=== PATIENT | male | born 1960 | race Caucasian/White ===

== ENCOUNTER 2020-10-26 05:23 | Day surgery (SDC) | payer BC ==
[2020-10-20 16:25] LABS: BASOPHILS # (AUTO) 0.1 X10'3 (0-0.2); BASOPHILS % (AUTO) 0.8 % (0-1); EOSINOPHILS # (AUTO) 0.3 X10'3 (0-0.9); EOSINOPHILS % (AUTO) 3.7 % (0-6); LYMPHOCYTES # (AUTO) 1.7 X10'3 (1.1-4.8); LYMPHOCYTES % (AUTO) 20.9 % (21-51); MEAN CORPUSCULAR HGB CONC 34.4 g/dL (33.0-36.5); MEAN CORPUSCULAR VOLUME 90.1 FL (78-98); MEAN PLATELET VOLUME 7.6 FL (7.4-10.4); MONOCYTES # (AUTO) 0.5 X10'3 (0-0.9); MONOCYTES % (AUTO) 6.4 % (2-12); NEUTROPHILS # (AUTO) 5.7 X10'3 (1.8-7.7); NEUTROPHILS % (AUTO) 68.2 % (42-75); PRE OP HEMATOCRIT 43.2 % (42.0-52.0); PRE OP HEMOGLOBIN 14.9 g/dL (14.0-17.9); PRE OP PLATELET COUNT 260 X10'3 (140-440); RED BLOOD COUNT 4.79 X10'6 (4.70-6.10); RED CELL DISTRIBUTION WIDTH 13.7 % (11.5-14.5)
[2020-10-20 16:44] LABS: ALBUMIN 4.1 G/DL (3.4-5.0); ALBUMIN/GLOBULIN RATIO 1.2 (1.1-1.5); ALKALINE PHOSPHATASE 83 IU/L (46-116); BLOOD UREA NITROGEN 22 MG/DL (7-18); BUN/CREATININE RATIO 17.7 (5.4-32.0); CALCIUM 8.9 MG/DL (8.5-10.1); CHLORIDE 104 MMOL/L (99-107); CREATININE 1.24 MG/DL (0.60-1.10); PRE OP ALT 43 U/L (30-65); PRE OP ANION GAP 11 (8-16); PRE OP BILIRUB, TOTAL 0.4 MG/DL (0.0-1.0); PRE OP GLUCOSE 97 MG/DL (70-104); PRE OP SODIUM 140 MMOL/L (135-145); TOTAL CARBON DIOXIDE 25.2 MMOL/L (24-32); TOTAL PROTEIN 7.6 G/DL (6.4-8.2); eGFR 59 ML/MIN
[2020-10-20 16:46] LABS: PRE OP AST 27 U/L (10-37); PRE OP POTASSIUM 4.1 MMOL/L (3.4-5.1)
[~2020-10-26] VITALS: Ht 172.7 cm; Wt 123.0 kg
[2020-10-26] VITALS (18 sets, daily range): BP systolic 119–143; BP diastolic 68–87
[~2020-10-26 05:23] MED LIST: ALBU8.5H8 INH; IBUP-1986 PO; PANT40TA54 PO; VITAMIN C; VITAMIN D3; [UNRECOGNIZED DRUG - OTHER]; ringers solution, lacted 1,000 ML IV SCH
[2020-10-26] MEDS ORDERED: famotidine 20mg tablet PO ONE (05:30)
[2020-10-26] MEDS ORDERED: ceFAZolin 2gm in dextrose, iso 50 ML IV ONE (05:30)
[2020-10-26] MEDS ORDERED: BUPIVAcaine/PF 2.5mg/ml (0.25%) 10ml vial ONE (06:47)
[2020-10-26] MEDS ORDERED: LIDOcaine 1% 30ml preserv. free vial ONE (06:47)
[2020-10-26] MEDS ORDERED: BUPIVAcaine/PF 2.5 mg/ml (0.25%) 30ml vial ONE (06:47)
[2020-10-26] MEDS ORDERED: BUPIVACAINE liposomal/PF 13.3 MG/ML vial IM ONE (06:48)
[2020-10-26] MEDS ORDERED: fentaNYL/PF 50MCG/1 ML 2ML syringe ONE ×2 (07:17→08:18)
[2020-10-26] MEDS ORDERED: midazolam 1 mg/ML 2ml injection ONE (07:18)
[2020-10-26] MEDS ORDERED: rocuronium 10mg/ml inj IV ONE (07:20)
[2020-10-26] MEDS ORDERED: propofol inj 20 ML IV ONE (07:20)
[2020-10-26] MEDS ORDERED: LIDOcaine 2% (20mg/ml) 5ml vial ONE (07:20)
[2020-10-26] MEDS ORDERED: ringers solution, lacted 1,000 ML IV SCH (07:50)
[2020-10-26] MEDS ORDERED: morphine 2 MG/ML inj. syringe IV PRN (07:50)
[2020-10-26] MEDS ORDERED: ondansetron/PF 4mg/2ml inj IV PRN (07:50)
[2020-10-26] MEDS ORDERED: morphine 4 MG/ML inj SYRINge IV PRN (07:50)
[2020-10-26] MEDS ORDERED: meperidine/PF 25mg/ml syringe IV PRN ×3 (07:50)
[2020-10-26] MEDS ORDERED: proCHLORperazine 10 MG/2 ml inj IV PRN (07:50)
[2020-10-26] MEDS ORDERED: acetaminophen 1,000mg/100ml IV 100 ML IV ONE (08:45)
[2020-10-26] MEDS ORDERED: ePHEDrine 50MG/ML INJ. ONE (08:45)
[2020-10-26] MEDS ORDERED: glycopyrrolate 0.2mg/ml inj ONE (08:45)
[2020-10-26] MEDS ORDERED: neostigmine methylsulfate 1 MG/ML 10ml vial ONE (08:45)
[2020-10-26] MEDS ORDERED: dexamethasone sod phosphate 4mg/ml inj. ONE (08:45)
--- NOTE | 2020-10-26 09:27 | NUR ---
Received from OR via [facility] , accompanied by Anesthesiologist QUIQUE and report given by Anesthesiolgist. PATIENT WITH 20G PIV IN RIGHT UEU RUNNING LR AT 100. DENIES PAIN. 4 ABDOMINAL DRESSINGS PRESENT THAT ARE CDI. Addendum: 10/26/20 at 0937 by Edson Juarez RN, RN Amended: Links added.
[2020-10-26] MEDS ORDERED: oxyCODONE/APAP 5-325mg tablet PO PRN ×2 (09:30)
--- NOTE | 2020-10-26 11:07 | NUR ---
CARE TURNED OVER TO JENNIFER. CAMPUZANO. DECLINES DESIRE FOR PAIN MEDS AT THIS TIME Addendum: 10/26/20 at 1123 by Edson Juarez RN, RN Amended: Links added.
== END 2020-10-26 12:07 | disposition home or self-care (01) ==
LOC: PAS 05:23
PROVIDERS: ATTEND Surgery
DX: K42.0 Umbilical hernia with obstruction, without gangrene (principal); K43.6 Other and unspecified ventral hernia with obstruction, without gangrene; K21.9 Gastro-esophageal reflux disease without esophagitis; J45.909 Unspecified asthma, uncomplicated; Z88.6 Allergy status to analgesic agent; Z79.899 Other long term (current) drug therapy; Z98.890 Other specified postprocedural states
CPT/HCPCS: 36415; 49653; 64488; 80053; 82948; 85025; 93005; C1781; C9290; J0131; J1100; J2001; J2250; J2704; J2710; J3010; J3490; S2900; U0003; U0005; A4215; A4618; J7120